=== PATIENT | male | born 1950 | race Caucasian/White ===

== ENCOUNTER 2019-03-05 13:35 | Emergency (ER) | payer MEDICARE, OTHER ==
[2019-03-05 13:55] VITALS: BP 129/83
[2019-03-05] MEDS ORDERED: Lactated Ringers 1,000 ML IV ONE ×2 (14:29→16:09)
[2019-03-05] MEDS ORDERED: Sodium Chloride 0.9% 10 ML Syringe FLUSH PRN (14:29)
--- NOTE | 2019-03-05 15:51 | EDM.PDOC ---
ED HPI GENERAL MEDICAL PROBLEM - General Chief Complaint: Abdominal Pain Stated Complaint: FLU SYMPTOMS Time Seen by Provider: 03/05/19 14:15 Source of Information: Reports: Patient History Limitations: Reports: No Limitations - History of Present Illness INITIAL COMMENTS - FREE TEXT/NARRATIVE: 69-year-old male presents for evaluation and treatment of flulike symptoms. Patient reports he has been experiencing symptoms for the last 2 days. He states that he is having some abdominal discomfort and cramping to the right lower abdomen. He reports nausea, chills, fatigue, decreased appetite, lightheadedness, fever and a 15 pound weight loss. He denies any vomiting. He states he's had multiple episodes of diarrhea, has had at least 3 episodes of diarrhea today and at least 15 episodes yesterday. He is not appreciating any blood in his stool. He had a fever as high as 101 per his . He denies any all contacts. Patient denies any surgeries to his abdomen. He denies recent travel. Denies any recent antibiotic usage. Primary care provider is Dr. Benoit. Lower Abdomen Pain Score (Numeric/FACES): 5 - Related Data Allergies Allergy/AdvReac Type Severity Reaction Status Date / Time No Known Allergies Allergy Verified 03/21/15 13:47 Home Meds: Home Meds Aspirin [Halfprin] 81 mg PO MOWEFR 03/21/15 [History] Metoprolol Succinate [Toprol XL] 25 mg PO DAILY 03/21/15 [History] atorvaSTATin [Lipitor] 20 mg PO DAILY 03/21/15 [History] Cholecalciferol (Vitamin D3) [Vitamin D3] 2,000 unit PO DAILY 03/05/19 [History] Past Medical History - Past Surgical History Other HEENT Surgeries/Procedures: Nasal polypectopy and rhinoplasty Other Musculoskeletal Surgeries/Procedures:: Lower back surgery due to ruptured disk. Social & Family History - Tobacco Use Smoking Status *Q: Never Smoker - Caffeine Use Other Caffeine Use: de caf; diet coke rarely - Recreational Drug Use Recreational Drug Use: No ED ROS GENERAL - Review of Systems Review Of Systems: See Below Constitutional: Reports: Fever, Chills, Fatigue, Decreased Appetite GI/Abdominal: Reports: Abdominal Pain, Diarrhea, Nausea. Denies: Hematochezia, Melena, Vomiting : Reports: No Symptoms ED EXAM, GI/ABD - Physical Exam Exam: See Below Exam Limited By: No Limitations General Appearance: Alert, WD/WN, No Apparent Distress Respiratory/Chest: No Respiratory Distress, Lungs Clear, Normal Breath Sounds Cardiovascular: Normal Peripheral Pulses, Regular Rate, Rhythm, No Murmur GI/Abdominal Exam: Normal Bowel Sounds, Soft, No Distention, Tender (minor tenderness to the RLQ), Other (no pain wiht heel percussion, negative psosas sign, negative obturator sign). No: Guarding, Rebound Neurological: Alert, Oriented, Normal Cognition Psychiatric: Normal Affect, Normal Mood Skin Exam: Warm, Dry, Normal Color EKG INTERPRETATION EKG Date: 03/05/19 Time: 14:37 Rhythm: NSR Rate (Beats/Min): 70 EKG Interpretation Comments: Paced rhythm at 70 bpm. paced rhythm. paired PVCs. reviewed by myself and dr. Benson. Course - Vital Signs Last Recorded V/S: Last Vital Signs Temp 97.8 F 03/05/19 13:49 Pulse 107 H 03/05/19 13:49 Resp 20 03/05/19 13:49 BP 129/83 03/05/19 13:49 Pulse Ox 96 03/05/19 13:49 Orthostatic Blood Pressure [ 87/69 Standing] Orthostatic Blood Pressure [ 106/84 Sitting] Orthostatic Blood Pressure [ 101/67 Supine] - Orders/Labs/Meds Labs: Laboratory Tests 03/05/19 03/05/19 03/05/19 Range/Units 14:40 14:40 14:40 WBC 6.11 (4.23-9.07) K/mm3 RBC 4.72 (4.63-6.08) M/mm3 Hgb 14.5 (13.7-17.5) gm/L Hct 43.1 (40.1-51.0) % MCV 91.3 (79.0-92.2) fl MCH 30.7 (25.7-32.2) pg MCHC 33.6 (32.2-35.5) g/dl RDW Std Deviation 49.1 H (35.1-43.9) fL Plt Count 130 L (163-337) K/mm3 MPV 10.6 (9.4-12.3) fl Neutrophils % (Manual) 77 H (40-60) % Band Neutrophils % 4 (0-10) % Lymphocytes % (Manual) 12 L (20-40) % Atypical Lymphs % 0 % Monocytes % (Manual) 6 (2-10) % Eosinophils % (Manual) 1 (0.8-7.0) % Basophils % (Manual) 0 L (0.2-1.2) Platelet Estimate Adequate RBC Morph Comment Normal Sodium 134 L (136-145) mEq/L Potassium 3.6 (3.5-5.1) mEq/L Chloride 103 (98-107) mEq/L Carbon Dioxide 20 L (21-32) mEq/L Anion Gap 14.6 (5-15) BUN 24 H (7-18) mg/dL Creatinine 1.1 (0.7-1.3) mg/dL Est Cr Clr Drug Dosing 63.38 mL/min Estimated GFR (MDRD) > 60 (>60) mL/min BUN/Creatinine Ratio 21.8 H (14-18) Glucose 116 H (80-115) mg/dL Calcium 8.0 L (8.5-10.1) mg/dL Magnesium 1.9 (1.8-2.4) mg/dl Total Bilirubin 0.5 (0.2-1.0) mg/dL AST 27 (15-37) U/L ALT 38 (16-63) U/L Alkaline Phosphatase 59 (46-116) U/L C-Reactive Protein 1.2 H* (<1.0) mg/dL Total Protein 6.3 L (6.4-8.2) g/dl Albumin 3.1 L (3.4-5.0) g/dl Globulin 3.2 gm/dL Albumin/Globulin Ratio 1.0 (1-2) Urine Color (Yellow) Urine Appearance (Clear) Urine pH (5.0-8.0) Ur Specific [place] (1.005-1.030) Urine Protein (Negative) Urine Glucose (UA) (Negative) Urine Ketones (Negative) Urine Occult Blood (Negative) Urine Nitrite (Negative) Urine Bilirubin (Negative) Urine Urobilinogen (0.2-1.0) Ur Leukocyte Esterase (Negative) Urine RBC (0-5) /hpf Urine WBC (0-5) /hpf Ur Squamous Epith Cells (0-5) /hpf Urine Bacteria (FEW) /hpf Urine Mucus (FEW) /hpf 03/05/19 Range/Units 16:45 WBC (4.23-9.07) K/mm3 RBC (4.63-6.08) M/mm3 Hgb (13.7-17.5) gm/L Hct (40.1-51.0) % MCV (79.0-92.2) fl MCH (25.7-32.2) pg MCHC (32.2-35.5) g/dl RDW Std Deviation (35.1-43.9) fL Plt Count (163-337) K/mm3 MPV (9.4-12.3) fl Neutrophils % (Manual) (40-60) % Band Neutrophils % (0-10) % Lymphocytes % (Manual) (20-40) % Atypical Lymphs % % Monocytes % (Manual) (2-10) % Eosinophils % (Manual) (0.8-7.0) % Basophils % (Manual) (0.2-1.2) Platelet Estimate RBC Morph Comment Sodium (136-145) mEq/L Potassium (3.5-5.1) mEq/L Chloride (98-107) mEq/L Carbon Dioxide (21-32) mEq/L Anion Gap (5-15) BUN (7-18) mg/dL Creatinine (0.7-1.3) mg/dL Est Cr Clr Drug Dosing mL/min Estimated GFR (MDRD) (>60) mL/min BUN/Creatinine Ratio (14-18) Glucose (80-115) mg/dL Calcium (8.5-10.1) mg/dL Magnesium (1.8-2.4) mg/dl Total Bilirubin (0.2-1.0) mg/dL AST (15-37) U/L ALT (16-63) U/L Alkaline Phosphatase (46-116) U/L C-Reactive Protein (<1.0) mg/dL Total Protein (6.4-8.2) g/dl Albumin (3.4-5.0) g/dl Globulin gm/dL Albumin/Globulin Ratio (1-2) Urine Color Yellow (Yellow) Urine Appearance Clear (Clear) Urine pH 6.0 (5.0-8.0) Ur Specific [place] 1.025 (1.005-1.030) Urine Protein Trace H (Negative) Urine Glucose (UA) Negative (Negative) Urine Ketones Negative (Negative) Urine Occult Blood Negative (Negative) Urine Nitrite Negative (Negative) Urine Bilirubin Negative (Negative) Urine Urobilinogen 0.2 (0.2-1.0) Ur Leukocyte Esterase Negative (Negative) Urine RBC 0-5 (0-5) /hpf Urine WBC 0-5 (0-5) /hpf Ur Squamous Epith Cells 0-5 (0-5) /hpf Urine Bacteria Occasional (FEW) /hpf Urine Mucus Few (FEW) /hpf Meds: Medications Discontinued Medications Generic Name Dose Route Start Last Admin Trade Name Freq PRN Reason Stop Dose Admin Lactated Ringer's 1,000 mls @ 999 mls/hr 03/05/19 14:29 03/05/19 14:45 Ringers, Lactated IV 03/05/19 15:29 999 mls/hr .BOLUS ONE Administration Lactated Ringer's 1,000 mls @ 999 mls/hr 03/05/19 16:09 03/05/19 16:41 Ringers, Lactated IV 03/05/19 17:09 999 mls/hr .BOLUS ONE Administration Sodium Chloride 10 ml 03/05/19 14:29 03/05/19 14:45 Saline Flush FLUSH 10 ml ASDIRECTED PRN Administration Keep Vein Open - Re-Assessments/Exams Free Text/Narrative Re-Assessment/Exam: 03/05/19 18:04 Reviewed the labs with the patient and his . Feels improved with fluids. Patient is hungry. Declined to give stool sample. Will send home with collection containers and if not better will bring stool sample back. Will discharge home at this time. Discharge instructions as documented. Departure - Departure Time of Disposition: 18:05 Disposition: Home, Self-Care 01 Condition: Fair Clinical Impression: Diarrhea, Viral gastroenteritis - Discharge Information *PRESCRIPTION DRUG MONITORING PROGRAM REVIEWED*: No *COPY OF PRESCRIPTION DRUG MONITORING REPORT IN PATIENT JULIETH: No Instructions: Viral Gastroenteritis, Adult, [id number] Referrals: Brody Benoit Jr, MD [Primary Care Provider] - Forms: ED Department Discharge Additional Instructions: Recommend a probiotic, these are available OTC. Recommend clear fluids and a bland diet. [place] diet recommendations include bread, rice, applesauce, soup broth, bananas, etc. Recommend clear fluids and a bland diet today and tomorrow. may advance to a more normal diet Saturday if tolerated. Expect you symptoms to last 3-5 days. Recommend stool studies if symptoms persist longer and follow-up with your PCP. An outpatient order has been placed for a stool studies should you need. Please return to the ER should your symptoms change or worsen.
== END 2019-03-05 18:25 | disposition home or self-care (01) ==
LOC: JD.ED 13:35
DX: A08.4 Viral intestinal infection, unspecified (principal); Z79.82 Long term (current) use of aspirin; Z79.899 Other long term (current) drug therapy
CPT/HCPCS: 36415; 80053; 81001; 83735; 85007; 85027; 86140; 93005; 96360; 96361; 99284; J7120

== ENCOUNTER 2020-10-01 19:00 | Emergency (ER) | payer MEDICARE, OTHER ==
[2020-10-01 19:15] VITALS: BP 127/73; PULSE 63
[2020-10-01] MEDS ORDERED: Acetaminophen/HYDROcodone 325-5 MG Tab PO STA (19:29)
--- NOTE | 2020-10-01 19:32 | EDM.PDOC ---
ED HPI GENERAL MEDICAL PROBLEM - General Chief Complaint: Lower Extremity Injury/Pain Stated Complaint: RIGHT KNEE INJURY Time Seen by Provider: 10/01/20 19:10 Source of Information: Reports: Patient, Family (, on the phone) History Limitations: Reports: No Limitations - History of Present Illness INITIAL COMMENTS - FREE TEXT/NARRATIVE: Mr. Henriquez is a very pleasant 70-year-old gentleman who now presents to the ED with a right knee injury. He states that he stepped into a deep hole while hunting yesterday, 09/30/2020. He fell over to his left side, torquing his right knee. Since then, he has developed progressively worsening pain and swelling to his knee. He is unable to bend his knee, even a little. Other than his right knee, he is uninjured. He has been taking [id number] Tylenol for his pain. The patient is on both a baby aspirin and Coumadin. The patient reports prior football injuries to his right knee, and is status post one open and one arthroscopic surgery to his right knee. Additionally, his Orthopedic Surgeon injects steroids into the knee to treat his arthritis. He is aware that he will need a knee replacement at some point. Here in the ED, the patient is found to be hemodynamically stable, afebrile, saturating 97% on room air. Prior to yesterday's knee injury, the patient denies having a recent fever, chills, sore throat, ear pain, nasal or sinus congestion, cough, dyspnea, chest pain, palpitations, nausea, vomiting, constipation, diarrhea, abdominal pain, urinary symptoms, recent weight gain or weight loss, recent bloody bowel movements or black bowel movements, recent joint aches, headaches, or rashes. The patient's PCP is Dr. Brody Benoit. His Orthopedic Surgeon is Dr. Vargas Adan. His Wafer Polishing Worker is Dr. Jeanine Patel. His EP Wafer Polishing Worker is Dr. Jose A Neal. He has not received an influenza vaccine this season, but agreed to receive one here [facility]. Treatments INCREMENT MANAGER: Reports: NSAIDS Right Knee Pain Score (Numeric/FACES): 6 - Related Data Allergies Allergy/AdvReac Type Severity Reaction Status Date / Time No Known Allergies Allergy Verified 10/01/20 19:14 Home Meds: Home Meds Metoprolol Succinate [Toprol XL] 25 mg PO DAILY 03/21/15 [History] atorvaSTATin [Lipitor] 20 mg PO DAILY 03/21/15 [History] Cholecalciferol (Vitamin D3) [Vitamin D3] 2,000 unit PO DAILY 03/05/19 [History] Acetaminophen/HYDROcodone [Delaplaine 325-5 MG] 1 - 2 tab PO Q6H PRN #20 tablet 10/01/20 [Rx] Amiodarone [Cordarone] 200 mg PO DAILY 10/01/20 [History] Warfarin [Coumadin] 5 mg PO MOFR 10/01/20 [History] Warfarin [Coumadin] 7.5 mg PO SUTUWETHSA 10/01/20 [History] busPIRone [Buspar] 5 mg PO DAILY 10/01/20 [History] Past Medical History Cardiovascular History: Reports: Afib (paroxysmal), High Cholesterol Musculoskeletal History: Reports: Osteoarthritis Psychiatric History: Reports: Anxiety - Past Surgical History HEENT Surgical History: Reports: Naso-Sinus Surgery (nasal polypectopy and rhinoplasty) Cardiovascular Surgical History: Reports: Pacer Neurological Surgical History: Reports: Lumbar Spine Musculoskeletal Surgical History: Reports: Arthroscopic Knee (right, x 1), Other (See Below) (Open right knee x 1) Social & Family History - Tobacco Use Tobacco Use Status *Q: Never Tobacco User - Caffeine Use Caffeine Use: Reports: Soda Other Caffeine Use: de caf; diet coke rarely - Recreational Drug Use Recreational Drug Use: No Review of Systems - Review of Systems Review Of Systems: Comprehensive ROS is negative, except as noted in HPI. ED EXAM, GENERAL - Physical Exam Exam: See Below Exam Limited By: No Limitations General Appearance: Alert, WD/WN, No Apparent Distress Extremities: Other (There is significant swelling to the right knee, when compared to the left. There is a considerable amount of ecchymosis to the medial side of the distal right thigh, medial knee, and proximal right leg. There is no tenderness to palpation of the right lower extremity except in the area of ecchymosis, which is quite tender. The patient does not tolerate even minimal PROM of the right knee, however. Neurovascular status of the right lower extremity is intact.) Course - Vital Signs Last Recorded V/S: Last Vital Signs Temp 37.1 C 10/01/20 19:09 Pulse 63 10/01/20 19:09 Resp 18 10/01/20 19:09 BP 127/73 10/01/20 19:09 Pulse Ox 97 10/01/20 19:09 - Orders/Labs/Meds Orders: Active Orders 24 hr Category Date Time Status Influenza Vaccine Charge [RC] .DISCHARGE Care 10/01/20 19:29 Active Knee Min 4V Rt [CR] Stat Exams 10/01/20 19:28 Ordered DME for Discharge [COMM] Stat Oth 10/01/20 20:49 Ordered Meds: Medications Discontinued Medications Generic Name Dose Route Start Last Admin Trade Name Freq PRN Reason Stop Dose Admin Hydrocodone Bitart/Acetaminophen 1 tab 10/01/20 19:29 10/01/20 20:06 Delaplaine 325-5 Mg PO 10/01/20 19:30 1 tab ONETIME STA Administration Influenza Virus Vaccine 1 each 10/01/20 19:29 Pharmacy To Dose - Influenza Vaccine IM 10/01/20 19:30 ONETIME ONE Influenza Virus Vaccine 240 mcg 10/01/20 19:45 Fluzone High-Dose Quad 2020-21 IM 10/01/20 19:46 .ONCE ONE - Re-Assessments/Exams Free Text/Narrative Re-Assessment/Exam: 10/01/20 19:30 I am concerned about a tibial plateau fracture. I ordered x-rays. He will be given 1 tablet of Delaplaine; his is not sure if he gets goofy on opioids or not. 10/01/20 20:36 4-view radiographs of the right knee are read by [facility] as: 1. Oblique lucency demonstrated in the medial proximal fibular [sic] projecting through the tibia on the AP views not well-visualized on the lateral view. The possibility of a fracture not excluded and should be correlated clinically. 2. Degenerative changes as described above. 10/01/20 20:50 The patient has no pain, swelling, or tenderness over his right fibular head, therefore I think the radiologist interpretation is an over read. I do suspect, however, that he has torn a ligament in his knee, therefore he will be placed into a knee immobilizer before being discharged home with a prescription for Nor co that he can alternate with acetaminophen. He is to call Dr. Adan's office first thing Saturday morning to arrange to be seen. Departure - Departure Time of Disposition: 20:51 Disposition: Home, Self-Care 01 Condition: Good Clinical Impression: Internal derangement of right knee - Discharge Information *PRESCRIPTION DRUG MONITORING PROGRAM REVIEWED*: Not Applicable *COPY OF PRESCRIPTION DRUG MONITORING REPORT IN PATIENT JULIETH: Not Applicable Prescriptions: Acetaminophen/HYDROcodone [Delaplaine 325-5 MG] 1 - 2 tab PO Q6H PRN #20 tablet PRN Reason: Pain (Severe 7-10) Instructions: Patellar Tendon Tear Referrals: Brody Benoit Jr, MD [Primary Care Provider] - Vargas Adan MD [Physician] - Jeanine Patel MD [Ordering Only Provider] - Jose A Neal [Ordering Only Provider] - Forms: ED Department Discharge Additional Instructions: You were seen in the emergency room after stepping in a hole and falling over, injuring your right knee, on 09/30/2020. Work-up in the ER included x-rays of your right knee, which suggested a proximal fibula fracture, however, clinically, you do not have a fibula fracture. Based on your history, physical exam, and ER x-rays, you have most likely torn a ligament in your right knee, with subsequent bleeding into the area made worse by your being on Coumadin. You have been placed into a knee immobilizer. Put this on over your clothes every morning, and remove it at bedtime. Be very careful going up and down stairs. We recommend that you apply an ice pack to the inside of your right knee, over the knee immobilizer, several times a day for the next few days, to help minimize swelling. Take [id number] acetaminophen (Tylenol) needed for discomfort. If the acetaminophen is inadequate to control your pain, you may take the prescription opioid Delaplaine, 1 to 2 tablets up to every 6 hours, as needed for pain. Since there is acetaminophen already in Delaplaine, do not take both acetaminophen and Delaplaine. Do not drive or operate heavy machinery for 12 hours after taking Delaplaine. Delaplaine may cause constipation, so consider taking a stool softener. Contact the office of your Orthopedic Surgeon, Dr. Vargas Adan, first thing Saturday morning, to make an appointment to be seen. If any other problems, please do not hesitate to return to the ER. Sepsis Event Note (ED) - Evaluation Sepsis Screening Result: No Definite Risk - Focused Exam Vital Signs: Vital Signs Temp Pulse Resp BP Pulse Ox 10/01/20 19:09 37.1 C 63 18 127/73 97 - My Orders Last 24 Hours: My Active Orders 10/01/20 19:28 Knee Min 4V Rt [CR] Stat 10/01/20 19:29 Influenza Vaccine Charge [RC] .DISCHARGE 10/01/20 20:49 DME for Discharge [COMM] Stat - Assessment/Plan Last 24 Hours: My Active Orders 10/01/20 19:28 Knee Min 4V Rt [CR] Stat 10/01/20 19:29 Influenza Vaccine Charge [RC] .DISCHARGE 10/01/20 20:49 DME for Discharge [COMM] Stat
[2020-10-01] MEDS ORDERED: FLU Vacc QV2020-21(65YR UP)/PF 240 MCG/0.7 ML Syringe IM ONE (19:45)
--- NOTE | 2020-10-02 08:44 | CR ---
Right knee: 4 views of the right knee were obtained. Comparison: No prior right knee exam is available. Small joint effusion appears to be present. Severe lateral joint space narrowing is seen. Mild medial joint space narrowing is present. Osteophytes are seen both medially and laterally. Minimal vascular calcification is noted. Sclerotic area is seen within the proximal tibia. This is most likely old. I do not see a definite acute fracture line. Impression: 1. Degenerative change as noted above. 2. No definite acute abnormality is appreciated. Diagnostic code #2 I agree with preliminary report from ad, finalized on 10/01/20, 9:03 PM TELEPHONE INFORMATION CLERK
== END 2020-10-01 21:10 | disposition home or self-care (01) ==
LOC: JD.ED 19:00
DX: S70.11XA Contusion of right thigh, initial encounter (principal); S80.01XA Contusion of right knee, initial encounter; S89.81XA Other specified injuries of right lower leg, initial encounter; I48.91 Unspecified atrial fibrillation; E78.00 Pure hypercholesterolemia, unspecified; M19.90 Unspecified osteoarthritis, unspecified site; Z79.82 Long term (current) use of aspirin; Z79.01 Long term (current) use of anticoagulants; Z79.899 Other long term (current) drug therapy; W17.2XXA Fall into hole, initial encounter
CPT/HCPCS: 73564; 99283; A9270

== ENCOUNTER 2021-06-13 02:02 | Emergency (ER) | payer MEDICARE, OTHER ==
[2021-06-13 02:13] VITALS: BP 109/65; PULSE 64
--- NOTE | 2021-06-13 02:51 | EDM.PDOC ---
ED HPI GENERAL MEDICAL PROBLEM - General Chief Complaint: Lower Extremity Injury/Pain Stated Complaint: FALL/RT KNEE PAIN Time Seen by Provider: 06/13/21 02:18 - History of Present Illness INITIAL COMMENTS - FREE TEXT/NARRATIVE: Patient arrived to ED by private vehicle Is accompanied by his and daughter Injury occurred about 1000 yesterday He descended his basement stairs, and missed a small step at the bottom He fell, landing on the right shoulder and striking the right knee He denies head injury or loss of consciousness He is on anticoagulant medication Endorses mild pain to the right shoulder, with a small bruise visible, no restriction of motion Complains primarily of pain to the right knee, with inability to bear weight or bend the knee Since falling, he has been utilizing a walker to get around He has taken 3 doses of acetaminophen 500 mg for pain He was unable to sleep tonight due to pain, so decided to come to ED for evaluation He sustained an injury to the same joint 09/2020 He has swelling demonstrated along the anteromedial aspect of the knee, which has persisted since that injury He demonstrates swelling to the anterolateral aspect of the upper patella/quadriceps junction, with pain also localized at that site He denies pain or injury to the ankle or foot Right Knee Pain Score (Numeric/FACES): 8 - Related Data Allergies Allergy/AdvReac Type Severity Reaction Status Date / Time No Known Allergies Allergy Verified 06/13/21 02:13 Home Meds: Home Meds atorvaSTATin [Lipitor] 20 mg PO DAILY 03/21/15 [History] Cholecalciferol (Vitamin D3) [Vitamin D3] 2,000 unit PO DAILY 03/05/19 [History] Amiodarone [Cordarone] 200 mg PO DAILY 10/01/20 [History] Warfarin [Coumadin] 5 mg PO MOFR 10/01/20 [History] Warfarin [Coumadin] 7.5 mg PO SUTUWETHSA 10/01/20 [History] Past Medical History HEENT History: Reports: Other (See Below) Other HEENT History: glasses Cardiovascular History: Reports: Afib, High Cholesterol, Pacemaker Musculoskeletal History: Reports: Osteoarthritis Psychiatric History: Reports: Anxiety Endocrine/Metabolic History: Reports: Vitamin D Deficiency - Infectious Disease History Infectious Disease History: Reports: Novel Coronavirus - Past Surgical History HEENT Surgical History: Reports: Naso-Sinus Surgery Other HEENT Surgeries/Procedures: Nasal polypectopy and rhinoplasty Cardiovascular Surgical History: Reports: Pacer Neurological Surgical History: Reports: Lumbar Spine Musculoskeletal Surgical History: Reports: Arthroscopic Knee, Other (See Below) Other Musculoskeletal Surgeries/Procedures:: Lower back surgery due to ruptured disk X2. Social & Family History - Family History Family Medical History: No Pertinent Family History - Tobacco Use Tobacco Use Status *Q: Never Tobacco User Second Hand Smoke Exposure: No - Caffeine Use Caffeine Use: Reports: Coffee Other Caffeine Use: de caf; diet coke rarely - Recreational Drug Use Recreational Drug Use: No Review of Systems - Review of Systems Review Of Systems: See Below Constitutional: Denies: Weakness Respiratory: Denies: Shortness of Breath Cardiovascular: Denies: Chest Pain GI/Abdominal: Denies: Abdominal Pain Musculoskeletal: Reports: Joint Pain (Right knee). Denies: Neck Pain, Back Pain Skin: Reports: Bruising (Right shoulder) Neurological: Reports: Difficulty Walking (Secondary to knee injury) ED EXAM, GENERAL - Physical Exam Exam: See Below Free Text/Narrative:: Constitutional - awake; alert; no acute distress Head - no facial swelling or weakness ENT - no nasal deformity; no epistaxis; normal phonation Neck - no tenderness on palpation Respiratory - normal respiratory effort; no crackles or wheezing; no stridor; no chest tenderness or crepitus on palpation Cardiovascular - regular rhythm; normal rate; S1; S2; grade 3/6 systolic murmur GI/Abdomen - normal bowel sounds; soft; no tenderness; no rebound; no guarding; no mass Musculoskeletal - no thoracic or lumbar vertebral tenderness - right lower extremity: Moderate enlargement throughout knee joint; mild swelling medial to patella with mild tenderness along lower aspect; mild to moderate swelling with tenderness palpation distal/lateral quadricep, superolateral to upper pole of patella; markedly diminished range of motion of knee; functional range of motion of hip; no tenderness or swelling of foot or ankle; normal DP pulse - right shoulder: Full range of motion; no swelling or deformity; 5 cm x 6 cm ecchymosis anterolateral deltoid area - remainder of extremities unremarkable Skin - warm; dry Neurologic - normal speech; no weakness Psychiatric - normal mood and affect; memory and attention normal Course - Vital Signs Text/Narrative:: . Considered etiologies included: Knee injury, fracture, sprain, hematoma Symptoms and examination were discussed Radiography was performed and showed no acute osseous injury Symptomatic treatment was reviewed Use of knee immobilizer was discussed and patient indicated he had one at home from his injury last year Primary care and/or orthopedic follow-up was advised Patient was felt to be stable for outpatient follow-up Return precautions were provided Last Recorded V/S: Last Vital Signs Temp 36.8 C 06/13/21 02:12 Pulse 64 06/13/21 02:12 Resp 20 06/13/21 02:12 BP 109/65 06/13/21 02:12 Pulse Ox 95 06/13/21 02:12 - Radiology Interpretation Free Text/Narrative:: XR right knee, interpreted by promotion writer: Severe degenerative changes, no acute fracture No significant change from 09/2020 Departure - Departure Time of Disposition: 04:05 Disposition: Home, Self-Care 01 Clinical Impression: Contusion of right knee - Discharge Information *PRESCRIPTION DRUG MONITORING PROGRAM REVIEWED*: Not Applicable *COPY OF PRESCRIPTION DRUG MONITORING REPORT IN PATIENT JULIETH: Not Applicable Instructions: Hematoma, Knee Sprain, Adult Referrals: Yuri Stanley MD [Primary Care Provider] - Forms: ED Department Discharge Additional Instructions: Return if condition worsens May resume general activity and regular diet as tolerated May bear weight on right foot as tolerated Use walker and/or knee immobilizer for assistance with walking Continue usual medications Follow-up with primary care provider is recommended in 5 to 7 days Follow-up with orthopedic provider if symptoms are not improving
--- NOTE | 2021-06-13 06:59 | CR ---
Right knee: 4 views of the right knee were obtained. Comparison: Prior right knee study of 10/01/20. Diffuse joint space narrowing is seen on both sides which appear fairly symmetric on current study. Findings are compatible with increasing degenerative change. Joint effusion is seen. Vascular calcification is noted. Osteophytes are seen off the medial and lateral joint compartments. Osteophytes are also noted off the patella. Bony structures are osteopenic. No acute fracture is seen. Minimal degenerative subluxation is noted. Impression: 1. Degenerative change, osteopenia and joint effusion. 2. Degenerative change has progressed from previous exam. 3. No acute osseous abnormality is otherwise seen. Diagnostic code #3
== END 2021-06-13 04:17 | disposition home or self-care (01) ==
LOC: JD.ED 02:02
DX: S80.01XA Contusion of right knee, initial encounter (principal); I48.91 Unspecified atrial fibrillation; E78.00 Pure hypercholesterolemia, unspecified; M19.90 Unspecified osteoarthritis, unspecified site; Z79.899 Other long term (current) drug therapy; W10.9XXA Fall (on) (from) unspecified stairs and steps, initial encounter
CPT/HCPCS: 73562-26-RT; 73562-RT; 99282; 99283-25

== ENCOUNTER 2021-11-06 13:01 | Day surgery (SDC) | payer MEDICARE, OTHER ==
[~2021-11-06 13:01] MED LIST: Acetaminophen 325 MG Tab PO SCH; EPINEPHrine 1 MG/ML SDV ONE; Lactated Ringers 1,000 ML IV SCH; Lactated Ringers 1,000 ML ONE; Lidocaine 1% 2 ML ONE; Lidocaine 1% 4 ML ONE; Lidocaine 1%/Sod Bicarbonate in NS 8.4% 1 ML Syringe IDERM PRN; Midazolam 1 MG/ML 2 ML SDV ONE; Pregabalin 25 MG Cap PO SCH; Propofol 200 MG/20 ML SDV ONE; Ropivacaine 0.5% 5 MG/ML 30 ML SDV ONE; Sodium Chloride 0.9% 10 ML Syringe FLUSH SCH; Vancomycin 1 GM, Vancomycin 500 MG in Sodium Chloride 0.9% 500 ML IV ONE; ceFAZolin 1 GM Vial ONE; fentaNYL 100 MCG/2 ML SDV ONE; oxyCODONE ER 10 MG TAB.ER PO SCH
[2021-11-06] MEDS: Morphine 8 MG, EPINEPHrine 0.3 MG, Cefuroxime 750 MG, Ketorolac 30 MG, Sodium Chloride ... PRN ×10 (13:29→13:51)
[2021-11-06] MEDS: Vancomycin 1 GM SDV ONE ×2 (13:30→13:57)
[2021-11-06] MEDS: Bupivacaine 0.25% 10 ML SDV ONE ×2 (13:30→14:16)
[2021-11-06] MEDS: Triamcinolone Acetonide 40 MG/ML 1 ML SDV ONE ×2 (13:30→14:16)
[2021-11-06] MEDS ORDERED: Propofol 200 MG/20 ML SDV ONE (13:56)
[2021-11-06] MEDS ORDERED: fentaNYL 100 MCG/2 ML SDV IVPUSH PRN (14:52)
[2021-11-06] MEDS ORDERED: HYDROmorphone 0.5 MG/0.5 ML Syringe IVPUSH PRN (14:52)
[2021-11-06] MEDS ORDERED: Ondansetron 4 MG/2 ML SDV IVPUSH PRN (14:52)
[2021-11-06 16:41] VITALS: BP 123/75; PULSE 58
== END 2021-11-06 18:16 | disposition home or self-care (01) ==
LOC: JD.SDS 13:01
PROVIDERS: ATTEND Orthopaedic Surgery
DX: M17.0 Bilateral primary osteoarthritis of knee (principal); I48.0 Paroxysmal atrial fibrillation; I42.8 Other cardiomyopathies; G47.33 Obstructive sleep apnea (adult) (pediatric); I25.10 Atherosclerotic heart disease of native coronary artery without angina pectoris; Z79.01 Long term (current) use of anticoagulants; Z79.899 Other long term (current) drug therapy; Z98.890 Other specified postprocedural states
CPT/HCPCS: 20610; 27447; 36415; 73560; 85610; 85730; 97116; 97161; A9270; C1713; C1776; J0171; J0690; J0697; J1885; J2250; J2270; J2704; J2795; J3301; J3370; J3490; J7040; J7120; 01402; 64450; 76942; 99100; J3010

== ENCOUNTER 2022-12-11 21:09 | Emergency (ER) | payer MEDICARE, OTHER ==
[2022-12-11 22:11] VITALS: BP 147/68; PULSE 66
[2022-12-11] MEDS ORDERED: Sodium Chloride 0.9% 10 ML Syringe FLUSH PRN (23:09)
[2022-12-11] MEDS ORDERED: HYDROmorphone 0.5 MG/0.5 ML Syringe IVPUSH ONE (23:12)
[2022-12-12] MEDS ORDERED: Iopamidol 612 MG/ML 100 ML Bottle IVPUSH ONE (00:31)
== END 2022-12-12 02:51 | disposition home or self-care (01) ==
LOC: JD.ED 21:09
DX: S32.049A Unspecified fracture of fourth lumbar vertebra, initial encounter for closed fracture (principal); S20.221A Contusion of right back wall of thorax, initial encounter; J15.6 Pneumonia due to other Gram-negative bacteria; R91.1 Solitary pulmonary nodule; I48.91 Unspecified atrial fibrillation; I25.10 Atherosclerotic heart disease of native coronary artery without angina pectoris; E78.00 Pure hypercholesterolemia, unspecified; M19.90 Unspecified osteoarthritis, unspecified site; Z79.01 Long term (current) use of anticoagulants; Z79.82 Long term (current) use of aspirin; Z79.899 Other long term (current) drug therapy; W18.30XA Fall on same level, unspecified, initial encounter; Y92.009 Unspecified place in unspecified non-institutional (private) residence as the place of occurrence of the external cause
CPT/HCPCS: 36415; 70450; 71260; 72125; 74177; 80053; 85025; 85610; 96374; 99284; J1170; J3490; Q9967

== ENCOUNTER 2024-12-15 11:19 | Emergency (ER) | payer MEDICARE, OTHER ==
[2024-12-15 11:45] LABS: BASOPHILS PERCENT AUTO 0.5 % (0.0-1.0); EOSINOPHILS ABSOLUTE AUTO 0.3 K/mm3 (0.0-0.4); EOSINOPHILS PERCENT AUTO 4.2 % (0.0-6.0); HEMATOCRIT 39.8 % (42.0-52.0); HEMOGLOBIN 13.2 gm/dl (14.0-18.0); IMMATURE GRAN ABSOLUTE AUTO 0.02 K/mm3 (0.00-0.05); IMMATURE GRAN PERCENT AUTO 0.2 % (0.0-0.4); LYMPHOCYTES ABSOLUTE AUTO 1.4 K/mm3 (1.0-4.8); LYMPHOCYTES PERCENT AUTO 17.8 % (24.0-44.0); MEAN CORPUSCULAR HEMOGLOBIN 31.4 pg (28.0-32.0); MEAN CORPUSCULAR HGB CONC 33.2 g/dl (32.0-36.0); MEAN CORPUSCULAR VOLUME 94.5 fl (83.0-99.0); MEAN PLATELET VOLUME 9.5 fl (9.4-12.4); MONOCYTES ABSOLUTE AUTO 0.9 K/mm3 (0.0-0.8); MONOCYTES PERCENT AUTO 10.6 % (0.0-8.0); NEUTROPHILS ABSOLUTE AUTO 5.4 K/mm3 (1.8-7.7); NEUTROPHILS PERCENT AUTO 66.7 % (41.0-71.0); PLATELET COUNT,PLT 182 K/mm3 (150-400); RED BLOOD CELL COUNT 4.21 M/mm3 (4.52-5.90); WHITE BLOOD CELL COUNT,WBC 8.11 K/mm3 (3.9-11.3)
[2024-12-15 12:04] LABS: INR 1.94; PROTHROMBIN TIME 19.7 SECONDS (9.7-12.0)
[2024-12-15] MEDS: Warfarin 2.5 MG Tab PO ONE (13:40)
[2024-12-15 16:34] VITALS: BP 134/75; PULSE 61
== END 2024-12-15 14:00 | disposition home or self-care (01) ==
LOC: JD.ED 11:19
DX: S82.432A Displaced oblique fracture of shaft of left fibula, initial encounter for closed fracture (principal); I25.10 Atherosclerotic heart disease of native coronary artery without angina pectoris; I48.91 Unspecified atrial fibrillation; E78.00 Pure hypercholesterolemia, unspecified; Z95.0 Presence of cardiac pacemaker; Z79.899 Other long term (current) drug therapy; Z79.82 Long term (current) use of aspirin; Z79.890 Hormone replacement therapy; Z79.01 Long term (current) use of anticoagulants; W00.0XXA Fall on same level due to ice and snow, initial encounter
CPT/HCPCS: 36415; 70450; 73564; 73610; 85025; 85610; 99284; A9270; 29515; 99283